=== PATIENT | male | born 1990 | race Caucasian/White ===

== ENCOUNTER → 2017-06-26 | Emergency (ER) | payer OTHER, MEDICAID ==
[~2017-06-26] VITALS: Ht 177.8 cm; Wt 68.0 kg
[~2017-06-26] MED LIST: Lidocaine 1% MPF 10mg/ml 5ml INJ ONE; NORCO 5-325 TA1 EACH ORAL; traMADol 50mg tab ORAL ONE
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
[2017-06-26 20:35] VITALS: BP_SYST 119; BP_SYST 123; BP_DIAS 74; BP_DIAS 76
--- NOTE | 2017-06-27 09:40 | Diagnostic Imaging Report ---
Indication: Reason For Exam: PAIN Technique: 3 views right hand Comparison: none Findings: There is a comminuted fracture of the right first proximal phalanx. This is mildly displaced and angulated, extends into the distal articular surface. There is slight subluxation of the first metacarpophalangeal joint. No radiopaque foreign body. No other acute fractures. The joint spaces are preserved Impression: Positive for evidence first proximal phalangeal fracture This agrees with the ER physician impression reported in the electronic medical record
== END | disposition home or self-care (01) ==
LOC: EMR 19:00
DX: S62.511A Displaced fracture of proximal phalanx of right thumb, initial encounter for closed fracture (principal); V18.0XXA Pedal cycle driver injured in noncollision transport accident in nontraffic accident, initial encounter; Y93.55 Activity, bike riding; Y92.9 Unspecified place or not applicable; Z88.0 Allergy status to penicillin
CPT/HCPCS: 99284

== ENCOUNTER 2017-08-09 05:53 | Inpatient (IN) | payer OTHER, MEDICAID ==
[~2017-08-09] VITALS: Ht 177.8 cm; Wt 63.5 kg
[~2017-08-09 05:53] MED LIST changes: -Lidocaine 1% MPF 10mg/ml 5ml INJ ONE; -traMADol 50mg tab ORAL ONE
[2017-08-09] MEDS ORDERED: SUBOXONE 8 MG-1 EAC2 SL (06:01)
--- NOTE | 2017-08-09 06:12 | Emergency Room Report ---
History of Present Illness General Chief Complaint: Nausea, Vomiting, and Diarrhea Source: Patient Present Illness HPI 27-year-old male with no sig pmhx p/w nausea vomiting and abdominal pain 2 days. Pain is all of her abdomen, non radiating, sharp in nature, intermittent. No relieving or exacerbating factors. Pt reports n/v, multiple episodes of nbnb vomiting, denies diarrhea, the last passage of stool was 24 hours ago, is passing gas No recent travel or sick contacts. Patient states that this is never happened before. Denies any surgeries in the past. Admits to smoking marijuana. Allergies: Coded Allergies: AMOXICILLIN (Verified Allergy, Intermediate, fever, 06/26/17) Patient History Past Medical History: see triage record Past Surgical History: none Pertinent Family History: none Reviewed Nursing Documentation: PMH: Agreed; PSxH: Agreed Review of Systems All Other Systems: negative except mentioned in HPI Physical Exam Vital Signs Date Time Temp Pulse Resp B/P (MAP) Pulse Ox O2 Delivery O2 Flow Rate FiO2 08/09/17 05:55 98.3 86 16 122/86 96 Room Air 98.2 Sp02 EP Interpretation: reviewed, normal General Appearance: alert, GCS 15, non-toxic, moderate distress Head: normocephalic, atraumatic Eyes: bilateral eye normal inspection, bilateral eye PERRL, bilateral eye EOMI ENT: normal ENT inspection, normal pharynx, normal voice, moist mucus membranes Neck: normal inspection, full range of motion, supple Respiratory: normal inspection, lungs clear, normal breath sounds, no respiratory distress, no retraction, no wheezing, speaking full sentences, chest symmetrical Cardiovascular #1: normal inspection, regular rate, rhythm, no edema, normal capillary refill Cardiovascular #2: 2+ radial (R), 2+ radial (L) Gastrointestinal: other - Soft abdomen, no guarding or rigidity, however with generalized tenderness Genitourinary: no CVA tenderness Musculoskeletal: normal inspection, back normal, normal range of motion, non- tender Neurologic: normal inspection, alert, oriented x3, responsive, motor strength/ tone normal, sensory intact, normal gait, speech normal Psychiatric: normal inspection, judgement/insight normal, memory normal Skin: normal inspection, normal color, no rash, warm/dry, well hydrated, normal turgor Medical Decision Making ER Course 27-year-old male with nausea vomiting abdominal pain Differential Diagnosis: Gastritis, gastroenteritis, appendicitis, diverticulitis, SBO,UTI/pyelo Plan: Basic labs, ua Zofran, IVF CT abdopelvis Signed out patient to 27-year-old male with abdominal pain nausea vomiting Pending labs and CT, reassess for final disposition Last Vital Signs Date Time Temp Pulse Resp B/P (MAP) Pulse Ox O2 Delivery O2 Flow Rate FiO2 08/09/17 05:55 98.3 86 16 122/86 96 Room Air 98.2 Jeanette Peña M.D. Aug 09, 2017 06:12
[2017-08-09] MEDS ORDERED: Morphine Sulfate 4mg/ml Inj IVP ONE ×2 (06:15→09:00)
[2017-08-09 06:29] VITALS: BP 119/85
[2017-08-09 06:41] LABS: BASOPHILS % (AUTO) 1.5 % (0.0-2.0); EOSINOPHILS % (AUTO) 0.5 % (0.0-3.0); HEMOGLOBIN 16.1 G/DL (14.2-18.0); LYMPHOCYTES % (AUTO) 27.3 % (20.0-45.0); MEAN CORPUSCULAR VOLUME 84 FL (80-99); MONOCYTES % (AUTO) 5.9 % (1.0-10.0); NEUTROPHILS % (AUTO) 64.8 % (45.0-75.0); PLATELET COUNT 379 K/UL (150-450); RED BLOOD COUNT 5.69 M/UL (4.70-6.10); RED CELL DISTRIBUTION WIDTH 11.6 % (11.6-14.8); WHITE BLOOD COUNT 12.1 K/UL (4.8-10.8)
[2017-08-09 06:46] LABS: ANION GAP 14 mmol/L (5-15); BLOOD UREA NITROGEN 19 mg/dL (7-18); CALCIUM 10.3 MG/DL (8.5-10.1); CARBON DIOXIDE 26 MMOL/L (21-32); CHLORIDE 98 MMOL/L (98-107); CREATININE 1.3 MG/DL (0.55-1.30); POTASSIUM 4.1 MMOL/L (3.5-5.1); SODIUM 138 MMOL/L (136-145)
[2017-08-09 06:51] LABS: ALANINE AMINOTRANSFERASE 62 U/L (12-78); ALBUMIN 5.6 G/DL (3.4-5.0); ALBUMIN/GLOBULIN RATIO 1.5 (1.0-2.7); ALKALINE PHOSPHATASE 117 U/L (46-116); ASPARTATE AMINO TRANSFERASE 34 U/L (15-37); BILIRUBIN,TOTAL 0.8 MG/DL (0.2-1.0)
[2017-08-09 08:18] VITALS: BP 132/81
--- NOTE | 2017-08-09 08:37 | Diagnostic Imaging Report ---
Clinical Indication: Nausea, vomiting, abdominal pain Technique: No oral contrast utilized, per emergency room physician request IV administration nonionic contrast. Venous phase spiral acquisition obtained through the abdomen and pelvis. Multiplanar reconstructions were generated. Total dose length product 623.4 mGycm. CTDIvol(s) 12.57 mGy. Dose reduction achieved using automated exposure control Comparison: none Findings: Lack of enteric contrast limits assessment of the GI tract. Appendix is normal. There is equivocal mild thickening of the ascending colon wall, most likely an artifact of under distention. No evidence of diverticulosis or diverticulitis. No small bowel distention. No free or loculated intraperitoneal air or fluid. Distal esophagus, stomach, duodenum are unremarkable. The liver demonstrates a subcentimeter low-attenuation lesion in segment IVb which is too small to characterize, may have a peripheral nodular enhancing focus. The gallbladder, bile ducts, pancreas, spleen, adrenals, kidneys are all unremarkable. No retroperitoneal or mesenteric mass or adenopathy. No pelvic mass or adenopathy. The included lung bases are clear. The bones are unremarkable. Impression: Very questionable wall thickening of the ascending colon, most likely artifact of under distention but if real could indicate mild colitis changes No acute process otherwise Subcentimeter low-attenuation left lobe liver lesion. Too small to characterize, although questionable peripheral nodular enhancement raises possibility that this could represent a small hemangioma. Consider ultrasound to clarify The CT scanner at [facility] is accredited by the [employer] and the scans are performed using protocols designed to limit radiation exposure to as low as reasonably achievable to attain images of sufficient resolution adequate for diagnostic evaluation.
[2017-08-09 08:40] LABS: APPEARANCE,URINE CLEAR; BILIRUBIN, URINE NEGATIVE (NEGATIVE); COLOR,URINE PALE YELLOW; GLUCOSE, URINE (UA) NEGATIVE (NEGATIVE); KETONES,URINE 4+ (NEGATIVE); LEUKOCYTE ESTERASE ,URINE 1+ (NEGATIVE); NITRITE,URINE NEGATIVE (NEGATIVE); PH,URINE 8 (4.5-8.0); PROTEIN,URINE 2+ (NEGATIVE); UROBILINOGEN,URINE 1 MG/DL (0.0-1.0)
[2017-08-09] MEDS ORDERED: Ketorolac 30mg Inj IV ONE (09:00)
--- NOTE | 2017-08-09 09:36 | Emergency Room Report ---
Physical Exam Vital Signs Date Time Temp Pulse Resp B/P (MAP) Pulse Ox O2 Delivery O2 Flow Rate FiO2 08/09/17 05:55 98.3 86 16 122/86 96 Room Air 98.2 Medical Decision Making Diagnostic Impression: Primary Impression: Colitis Additional Impression: Intractable vomiting with nausea Qualified Codes: G43.A1 - Cyclical vomiting, intractable ER Course Hospital Course 27-year-old male presents ED with abdominal pain, vomiting and diarrhea Clinical course Patient initially seen by Dr. Peña; please see her note for full history and physical Labs - leukocytosis noted, Hb/Hct stable. electrolytes ok. Utox + THC CT A/P - ascending colitis appreciated Discussed findings with patient. Patient continues to have pain and vomiting despite multiple rounds of antiemetics and analgesia. Patient recently took Bactrim for an infection. Given Cipro and Flagyl here in ED. Will require admission Case discussed with Dr. Ojeda and he agreed to accept the patient to his service for further care and support I feel this is a highly complex case requiring extensive working including EKG/ Rhythm strip, Xray/CT/US, Blood/urine lab work, repeat exams while in ED, and administration of strong opiates/narcotics for pain control, admission to hospital or close patient follow up. Diagnosis - colitis, intractable vomiting and nausea Patient admitted to hospital in serious condition Labs Test 08/09/17 06:12 08/09/17 08:30 White Blood Count 12.1 K/UL (4.8-10.8) Red Blood Count 5.69 M/UL (4.70-6.10) Hemoglobin 16.1 G/DL (14.2-18.0) Hematocrit 48.0 % (42.0-52.0) Mean Corpuscular Volume 84 FL (80-99) Mean Corpuscular Hemoglobin 28.3 PG (27.0-31.0) Mean Corpuscular Hemoglobin Concent 33.5 G/DL (32.0-36.0) Red Cell Distribution Width 11.6 % (11.6-14.8) Platelet Count 379 K/UL (150-450) Mean Platelet Volume 7.9 FL (6.5-10.1) Neutrophils (%) (Auto) 64.8 % (45.0-75.0) Lymphocytes (%) (Auto) 27.3 % (20.0-45.0) Monocytes (%) (Auto) 5.9 % (1.0-10.0) Eosinophils (%) (Auto) 0.5 % (0.0-3.0) Basophils (%) (Auto) 1.5 % (0.0-2.0) Sodium Level 138 MMOL/L (136-145) Potassium Level 4.1 MMOL/L (3.5-5.1) Chloride Level 98 MMOL/L (98-107) Carbon Dioxide Level 26 MMOL/L (21-32) Anion Gap 14 mmol/L (5-15) Blood Urea Nitrogen 19 mg/dL (7-18) Creatinine 1.3 MG/DL (0.55-1.30) Estimat Glomerular Filtration Rate > 60 mL/min (>60) Glucose Level 146 MG/DL (74-106) Calcium Level 10.3 MG/DL (8.5-10.1) Total Bilirubin 0.8 MG/DL (0.2-1.0) Aspartate Amino Transf (AST/SGOT) 34 U/L (15-37) Alanine Aminotransferase (ALT/SGPT) 62 U/L (12-78) Alkaline Phosphatase 117 U/L (46-116) Total Protein 9.3 G/DL (6.4-8.2) Albumin 5.6 G/DL (3.4-5.0) Globulin 3.7 g/dL Albumin/Globulin Ratio 1.5 (1.0-2.7) Lipase 271 U/L (73-393) Urine Color Pale yellow Urine Appearance Clear Urine pH 8 (4.5-8.0) Urine Specific [place] 1.005 (1.005-1.035) Urine Protein 2+ (NEGATIVE) Urine Glucose (UA) Negative (NEGATIVE) Urine Ketones 4+ (NEGATIVE) Urine Occult Blood Negative (NEGATIVE) Urine Nitrite Negative (NEGATIVE) Urine Bilirubin Negative (NEGATIVE) Urine Urobilinogen 1 MG/DL (0.0-1.0) Urine Leukocyte Esterase 1+ (NEGATIVE) Urine RBC 0 /HPF (0 - 0) Urine WBC 2-4 /HPF (0 - 0) Urine Squamous Epithelial Cells Occasional /LPF Urine Bacteria Occasional /HPF (NONE) Urine Opiates Screen Positive (NEGATIVE) Urine Barbiturates Screen Negative (NEGATIVE) Phencyclidine (PCP) Screen Negative (NEGATIVE) Urine Amphetamines Screen Negative (NEGATIVE) Urine Benzodiazepines Screen Negative (NEGATIVE) Urine Cocaine Screen Negative (NEGATIVE) Urine Marijuana (THC) Screen Positive (NEGATIVE) CT/MRI/US Diagnostic Results CT/MRI/US Diagnostic Results : Imaging Test Ordered: CT A/P Impression ascending colitis Last Vital Signs Date Time Temp Pulse Resp B/P (MAP) Pulse Ox O2 Delivery O2 Flow Rate FiO2 08/09/17 09:02 98.6 08/09/17 08:18 71 16 132/81 100 Room Air Status: improved Disposition: ADMITTED INPATIENT Condition: Serious Referrals: NOT CHOSEN IPA/,REFERRING (PCP) Nigel Hannon MD Aug 09, 2017 09:36
[2017-08-09] MEDS ORDERED: ATIVAN2 MG ORAL (10:28)
[2017-08-09] MEDS ORDERED: PRILOSEC OTC20 MG ORAL (10:28)
[2017-08-09 10:43] VITALS: BP 132/74
[2017-08-09 12:00] VITALS: BP 132/74
[2017-08-09] MEDS ORDERED: D5 1/2NS 1,000 ML IV SCH (12:45)
[2017-08-09] MEDS: Morphine Sulfate 4mg/ml Inj IVP PRN ×3 (12:56→21:12)
[2017-08-09] MEDS: metroNIDAZOLE 500mg tab ORAL SCH ×2 (14:38→21:11)
[2017-08-09 16:00] VITALS: BP 156/80
--- NOTE | 2017-08-09 17:00 | Consultation ---
DATE OF CONSULTATION: 08/09/2017 CHIEF COMPLAINT: Nausea, vomiting, abdominal pain. HISTORY OF PRESENT ILLNESS: The patient is a 27-year-old male admitted to the hospital with two days worth of nausea, vomiting, abdominal pain, and diarrhea. According to him, he had these symptoms before, questionably he was diagnosed with cyclic vomiting syndrome in the past he said but this was not recently. He had a fall. He had a surgery on his thumb and then he said two days ago he started having nausea, vomiting, and diarrhea. PAST MEDICAL HISTORY: Basically none. PAST SURGICAL HISTORY: Right thumb surgery. No abdominal surgeries. ALLERGIES: Amoxicillin. MEDICATIONS: Please see medication reconciliation list. SOCIAL HISTORY: The patient apparently used to smoke and drink recently about two weeks ago, stopped both. FAMILY HISTORY: Noncontributory. He said he was adopted. He does not know what the family history. REVIEW OF SYSTEMS: A 12-point review of systems performed. Pertinent positives in history of present illness. PHYSICAL EXAMINATION: VITAL SIGNS: Temperature 99.2, pulse 68, respiratory rate 20, blood pressure 150/74. HEENT: Normocephalic and atraumatic. Sclerae anicteric. NECK: Supple. No evidence of lymphadenopathy. CARDIOVASCULAR: Regular rhythm. Plus S1 and S2. No obvious murmur. LUNGS: Clear to auscultation bilaterally. ABDOMEN: Soft. Minimal tenderness to palpation in the epigastric area. No rebound. No guarding. No peritoneal sign. EXTREMITIES: No cyanosis. No clubbing. No edema. LABORATORY DATA: White count is 12.1, hemoglobin 16, hematocrit 48, platelet count 379. Chem-7, sodium is 138, potassium 4.1, BUN 19, creatinine 1.3, and glucose 146. Calcium is 10.3. Liver function, AST of 34, ALT of 62, total bilirubin 0.8, and alkaline phosphate 117. CT of the abdomen and pelvis, no acute intra-abdominal findings. ASSESSMENT AND PLAN: The patient is a 27-year-old male with nausea and vomiting. Differential diagnosis would be gastritis. According to the patient, he had an endoscopy few years ago gastritis. Other possibility will be gastroenteritis with diarrhea. Other possibility marijuana-induced hyperemesis syndrome. PLAN: 1. Send urine toxicology. 2. Control the patient's symptoms with combination of different antiemetics. 3. Hydrate with IV fluids. 4. Start the patient on Protonix. 5. Start the patient on clears and advance as tolerated. 6. Hold off GI procedures at this time. I want to thank, Dr. Gus Ojeda, for this kind referral. Christos Cordelia Bell DR: Marivel JOB#: [id number] CC: Gus Ojeda D.O.
--- NOTE | 2017-08-09 17:30 | History and Physical Report ---
DATE OF ADMISSION: 08/09/2017 ATTENDING PHYSICIAN: Gus Ojeda D.O. PROJECT MANAGEMENT PROFESSIONAL: Christos Bell M.D. CHIEF COMPLAINT: Colitis, nausea, and vomiting. BRIEF HISTORY: This is a 27-year-old male, presented with nausea and vomiting for two days, getting worse, came to [facility], diagnosed with colitis, admitted to medical floor for further treatment. Currently, slightly nausea and vomiting in bed, weak. No complaint. PAST MEDICAL HISTORY: Nothing. PAST SURGICAL HISTORY: Right thumb. MEDICATIONS: Zofran, Toradol, Cipro, Pepcid IV, and morphine. ALLERGY: Amoxicillin. SOCIAL HISTORY: No smoking. No alcohol. Positive marijuana use. REVIEW OF SYSTEMS: No chest pain. No shortness of breath. Slight nausea and vomiting. No diarrhea. OBJECTIVE: GENERAL: Calm in bed, oriented x3, no acute distress. VITAL SIGNS: Temperature 99 degrees, pulse 68, respirations 20, and blood pressure 132/74. CARDIOVASCULAR: No murmur. LUNGS: Clear. ABDOMEN: Positive bowel sounds. Soft, nontender and nondistended. EXTREMITIES: No cyanosis or edema. NEUROLOGIC: Cranial nerves II through XII grossly intact. Deep tendon reflexes 2+. Normal strength 4/5. LABORATORY AND DIAGNOSTIC DATA: White count 12, otherwise CBC is normal. BMP shows glucose of 146, BUN 19, alkaline phosphatase 117, and calcium 10.3, otherwise normal. Urinalysis shows 4+ ketone and 1+ leukocyte esterase. Urine toxicology shows positive marijuana and opiates. ASSESSMENT: 1. Urinary tract infection. 2. Colitis. 3. Diabetes. 4. Nausea and vomiting. PLAN: Continue previous medications. Antibiotics per Infectious Disease. GI to follow. NPO. IV fluids. Compazine p.r.n. and morphine p.r.n. We will continue to follow this patient. Gus Ojeda D.O. DR: JENNIFER JOB#: [id number] CC:
[2017-08-09] MEDS ORDERED: Cyclobenzaprine 10mg Tab ORAL PRN (18:30)
[2017-08-09 20:00] VITALS: BP 129/70
[2017-08-09] MEDS ORDERED: Pantoprazole Inj IVP SCH (21:00)
[2017-08-09] MEDS ORDERED: Tubing IV Secondary IV ONE (22:34)
[2017-08-09] MEDS ORDERED: D5 1/2NS 1000ml IV ONE (22:34)
[2017-08-10] MEDS ORDERED: ZOFRAN ODT4 MG ORAL (00:34)
[2017-08-10] MEDS ORDERED: Pantoprazole Inj IVP SCH (09:00)
--- NOTE | 2017-08-10 11:04 | Discharge Summary ---
Discharge Summary Discharge Summary Discharge Summary DATE OF ADMISSION: 08/09/2017 DATE OF SIGNING AGAINST MEDICAL ADVISE:08/09/2017 REASON FOR ADMISSION: 27 years old male presented to emergency department with abdominal pain and intractable nausea and vomiting. Initial evaluation revealed stable vital signs. Noted leukocytosis, WBC -12.1, stable hemoglobin and hematocrit, stable electrolytes. Urine toxicology screen was positive for marijuana. CT of the abdomen abdomen and pelvis revealed possible mild colitis changes. Patient was given IV fluids, antiemetic given, patient was started on empiric antibiotic and was admitted with diagnosis of intractable nausea and vomiting, possible colitis. CONSULT[facility] COURSE: Patient admitted to medical surgical floor. Patient was on the IV fluids. GI specialist seen and evaluated the patient. Patient was on symptomatic treatment with antiemetics as needed. Patient was started on the GI prophylaxis. Patient was started on clear liquid diet with intent to advance as tolerated. Pain management provided as needed. Per GI specialist, at this point hold GI procedure. Per GI specialist, differential diagnosis would include gastroenteritis, gastritis versus marijuana induced hyperemesis syndrome. Patient decided to sign AGAINST MEDICAL ADVICE. The risks and consequences of signing AGAINST MEDICAL ADVICE were discussed with patient in detail. Patient verbalized understanding, nevertheless signing AMA form and left. FINAL DIAGNOSES: Intractable nausea and vomiting Possible gastritis Possible gastroenteritis Possible marijuana induced hyperemesis syndrome I have been assigned to dictate discharge summary for this account. I was not involved in the patient's management. Monique Shultz NP ([place]) Aug 10, 2017 11:04
== END 2017-08-09 22:35 | disposition left against medical advice (07) | DRG 392 ==
LOC: EMR 06:33 → 4E 09:24 → EDBEDREQ 09:46
DX: R11.2 Nausea with vomiting, unspecified (principal); K29.70 Gastritis, unspecified, without bleeding; K52.9 Noninfective gastroenteritis and colitis, unspecified; F12.188 Cannabis abuse with other cannabis-induced disorder; Z88.1 Allergy status to other antibiotic agents; R10.9 Unspecified abdominal pain
CPT/HCPCS: 36415; 74177; 80053; 80307; 81003; 83690; 85025; 87040; 99285; J2405

== ENCOUNTER 2017-08-09 22:48 | Emergency (ER) | payer OTHER, MEDICAID ==
[~2017-08-09] VITALS: Ht 177.8 cm; Wt 63.5 kg
[~2017-08-09 22:48] MED LIST changes: +ATIVAN2 MG ORAL; +PRILOSEC OTC20 MG ORAL; +SUBOXONE 8 MG-1 EAC2 SL
[2017-08-09] MEDS ORDERED: Haloperidol Lactate 5 MG in D5W 55 ML IVPB ONE (23:15)
--- NOTE | 2017-08-09 23:23 | Emergency Room Report ---
History of Present Illness General Chief Complaint: Nausea, Vomiting, and Diarrhea Source: Patient Present Illness HPI This is a 27-year-old male with a history of cyclic vomiting syndrome. He also history of anxiety and chronic pain. Patient presents with chief complaint of abdominal pain and nausea and vomiting. His current regimen is tramadol, lorazepam and buprenorphine. She was recently admitted here and sat out AMA today because he did not get his Ativan through the IV. He came back because he said he still vomiting. Also with cramping in his leg. Known diarrhea. No fever or chills. Cramping pain of 8 out of 10. Allergies: Coded Allergies: AMOXICILLIN (Verified Allergy, Intermediate, fever, 06/26/17) Patient History Past Medical History: see triage record, old chart reviewed Past Surgical History: other Pertinent Family History: none Social History: Denies: smoking Immunizations: other Reviewed Nursing Documentation: PMH: Agreed; PSxH: Agreed Nursing Documentation-PMH Past Medical History: No Stated History Hx Cardiac Problems: No Hx Cancer: No Hx Gastrointestinal Problems: Yes Hx Neurological Problems: No Review of Systems Eye: Denies: eye pain, blurred vision ENT: Denies: ear pain, nose congestion, throat swelling Respiratory: Denies: cough, shortness of breath Cardiovascular: Denies: chest pain, palpitations Gastrointestinal: Reports: abdominal pain, nausea, vomiting; Denies: diarrhea Musculoskeletal: Denies: back pain, joint pain Skin: Denies: rash Neurological: Denies: headache, numbness Endocrine: Denies: increased thirst, increased urine Hematologic/Lymphatic: Denies: easy bruising All Other Systems: negative except mentioned in HPI Physical Exam Vital Signs Date Time Temp Pulse Resp B/P (MAP) Pulse Ox O2 Delivery O2 Flow Rate FiO2 08/09/17 22:54 98.6 86 22 118/78 98 Room Air 98.6 vitals normal Sp02 EP Interpretation: reviewed, normal General Appearance: well appearing, no apparent distress, alert Head: normocephalic, atraumatic Eyes: bilateral eye PERRL, bilateral eye EOMI ENT: hearing grossly normal, normal pharynx Neck: full range of motion, supple, no meningismus Respiratory: chest non-tender, lungs clear, normal breath sounds Cardiovascular #1: regular rate, rhythm, no murmur Gastrointestinal: non tender, no mass, no organomegaly, no bruit, non-distended , abnormal bowel sounds - Hyperactive Musculoskeletal: back normal, gait/station normal, normal range of motion Psychiatric: mood/affect normal Skin: warm/dry Medical Decision Making Diagnostic Impression: Primary Impression: Opioid dependence Qualified Codes: F11.20 - Opioid dependence, uncomplicated Additional Impression: Vomiting Qualified Codes: G43.A0 - Cyclical vomiting, not intractable ER Course Patient presents with nausea and vomiting and abdominal pain. His labs are unremarkable. Urine only 1+ ketone which is improved from before. You know he claims met multiple episodes vomiting no vomiting here. He sleeping comfortably. Constantly asking for narcotics and Ativan. We'll discharge home. He had multiple prescription for Ativan and opioid. He had a recent 90 tablets of Ativan and on and 20 tablets of Ultram on 07/29/2017. We'll discharge home. No evidence of an acute abdomen. No evidence of electrolyte abnormality. Lab Results Impression labs unremarkable Last Vital Signs Date Time Temp Pulse Resp B/P (MAP) Pulse Ox O2 Delivery O2 Flow Rate FiO2 08/09/17 22:54 98.6 86 22 118/78 98 Room Air 98.6 Status: improved Disposition: HOME, SELF-CARE Condition: Stable Scripts Ondansetron Odt* (ZOFRAN ODT*) 4 Mg Tab.rapdis 4 MG ORAL Q6H PRN for Nausea & Vomiting, #30 TAB 0 Refills Prov: WENDY ORNELAS M.D. 08/10/17 Patient Instructions: DIET, Vomiting or Diarrhea [6yr-Adult] Additional Instructions: Avoid going to ERs for pain medication and Ativan. Follow-up with your doctor in 23 days for recheck. Return if worse. WENDY ORNELAS M.D. Aug 09, 2017 23:23
[2017-08-09 23:35] LABS: HEMATOCRIT 39.3 % (42.0-52.0); HEMOGLOBIN 13.7 G/DL (14.2-18.0); LYMPHOCYTES % (AUTO) 25.4 % (20.0-45.0); MEAN CORPUSCULAR VOLUME 83 FL (80-99); MONOCYTES % (AUTO) 9.1 % (1.0-10.0); NEUTROPHILS % (AUTO) 64.5 % (45.0-75.0); PLATELET COUNT 314 K/UL (150-450); RED BLOOD COUNT 4.76 M/UL (4.70-6.10); RED CELL DISTRIBUTION WIDTH 11.6 % (11.6-14.8)
[2017-08-09 23:43] LABS: ANION GAP 11 mmol/L (5-15); BLOOD UREA NITROGEN 14 mg/dL (7-18); CALCIUM 8.8 MG/DL (8.5-10.1); CARBON DIOXIDE 25 MMOL/L (21-32); CHLORIDE 101 MMOL/L (98-107); CREATININE 1.1 MG/DL (0.55-1.30); POTASSIUM 3.7 MMOL/L (3.5-5.1); SODIUM 137 MMOL/L (136-145)
[2017-08-09 23:54] LABS: APPEARANCE,URINE CLEAR; BILIRUBIN, URINE NEGATIVE (NEGATIVE); COLOR,URINE PALE YELLOW; GLUCOSE, URINE (UA) NEGATIVE (NEGATIVE); KETONES,URINE 1+ (NEGATIVE); LEUKOCYTE ESTERASE ,URINE NEGATIVE (NEGATIVE); NITRITE,URINE NEGATIVE (NEGATIVE); PH,URINE 6 (4.5-8.0); PROTEIN,URINE NEGATIVE (NEGATIVE); UROBILINOGEN,URINE NORMAL MG/DL (0.0-1.0)
[2017-08-10 00:05] VITALS: BP 146/80
[2017-08-10] MEDS ORDERED: ZOFRAN ODT4 MG ORAL (00:34)
[2017-08-10 00:39] VITALS: BP 146/80
== END 2017-08-10 00:40 | disposition home or self-care (01) ==
LOC: EMR 23:50
DX: F11.20 Opioid dependence, uncomplicated (principal); G43.A0 Cyclical vomiting, in migraine, not intractable; G89.29 Other chronic pain; R10.9 Unspecified abdominal pain; F41.9 Anxiety disorder, unspecified
CPT/HCPCS: 36415; 80048; 81003; 85025; 96361; 96374; 99284; J1630; J2550

== ENCOUNTER 2018-02-25 14:59 | Emergency (ER) | payer MEDICAID, OTHER ==
[~2018-02-25] VITALS: Ht 177.8 cm; Wt 65.8 kg
[~2018-02-25 14:59] MED LIST changes: +ZOFRAN ODT4 MG ORAL
[2018-02-25] MEDS ORDERED: NKM (15:23)
[2018-02-25 15:30] VITALS: BP 122/72
--- NOTE | 2018-02-25 15:56 | Emergency Room Report ---
History of Present Illness General Chief Complaint: Skin Rash/Abscess Source: Patient (Zaheer Lockhart) Present Illness HPI 27-year-old male patient presents ER, complaining of right foot pain and cyst on left arm. Patient reports this is been present for the past 5 days, states it has been worse in the past 2 days. States that he went to an urgent care where he was prescribed antibiotics, states that he lost the prescription. Reports pain. Denies drainage. Denies recent injury or trauma. Also complaining of foot pain. States that he had surgery for a fracture bone in his foot one month ago, states that he was unable to follow-up with that doctor because they are in [place] and he does not have a way of "getting down there". Reports has not been able to see other orthopedic specialists or doctors because of his [employer] insurance. Denies recent injury or trauma. Complaining of pain. reports wrapped in an Andrei wrap and using crutches to walk , states was placed on by previous physicians that saw him. ports history of drug use, states has not use drugs in "a week or so". (Zaheer Lockhart) Allergies: Coded Allergies: AMOXICILLIN (Verified Allergy, Intermediate, fever, 06/26/17) Patient History Past Medical History: see triage record Reviewed Nursing Documentation: PMH: Agreed; PSxH: Agreed (Zaheer Lockhart) Nursing Documentation-PMH Past Medical History: No History, Except For Hx Cardiac Problems: No Hx Hypertension: No Hx Pacemaker: No Hx Asthma: No Hx COPD: No Hx Diabetes: No Hx Cancer: No Hx Gastrointestinal Problems: No Hx Dialysis: No History Of Psychiatric Problem: Yes - Anxiety Hx Neurological Problems: No Hx Cerebrovascular Accident: No Hx Seizures: No (Zaheer Lockhart) Review of Systems All Other Systems: negative except mentioned in HPI (Zaheer Lockhart) Physical Exam Vital Signs Date Time Temp Pulse Resp B/P (MAP) Pulse Ox O2 Delivery O2 Flow Rate FiO2 02/25/18 15:19 98.6 110 18 122/72 99 Room Air 98.6 Sp02 EP Interpretation: reviewed, normal General Appearance: well appearing, no apparent distress, alert, GCS 15, non- toxic Head: normocephalic, atraumatic Eyes: bilateral eye normal inspection, bilateral eye PERRL ENT: hearing grossly normal, normal pharynx, no angioedema, normal voice, uvula midline, moist mucus membranes Neck: full range of motion Respiratory: lungs clear, normal breath sounds, no rhonchi, no respiratory distress, no accessory muscle use, no wheezing, speaking full sentences Cardiovascular #1: regular rate, rhythm, no edema Cardiovascular #2: 2+ radial (R), 2+ radial (L), 2+ dorsalis pedis (R), 2+ dorsalis pedis (L) Musculoskeletal: back normal, digits/nails normal, gait/station normal, normal range of motion, other - neurovascular intact, no erythema or edema, no ecchymosis, tender - right medial foot Neurologic: alert, oriented x3, responsive, motor strength/tone normal, sensory intact, cerebellar normal, normal gait, speech normal Psychiatric: mood/affect normal Skin: other - left medial elbow: 2cm palpable abscess with overlying eythema, fluctuant, no surrounding erythema or edema, no drainge, no red streaking; right foot: Healing surgical scar, scabbing noted, no surrounding erythema or edema, no bruising, no drainage (Zaheer Lockhart P.AMiguel) Procedures Incision and Drainage Incision and Drainage : Consent: Verbal Site: left median arm proximal to elbow Blade Size: 11 I & D Procedure: betadine prep, sterile drapes applied, sterile dressing applied Wound Location: upper extremity - left arm Wound's Depth, Shape: superficial Wound Length (cm): 2 Wound Explored: contaminated Irrigated w/ Saline (ccs): 10 Anesthesia: Lidocaine w/ Epi Volume Anesthetic (ccs): 1 Splint Applied?: No Sling Applied?: No Patient Tolerated: Well Complications: None (Zaheer Lockhart P.AMiguel) Medical Decision Making PA Attestation Dr. Meza is my supervising Physician whom patient management has been discussed with. (Zaheer Lockhart P.AMiguel) Diagnostic Impression: Primary Impression: Abscess Additional Impression: Foot pain, right ER Course Pt. presents to the ED c/o cyst on arm and right foot pain. Ddx considered but are not limited to rash, cellulitis, abscess, sebaceous cyst , carbuncle, folliculitis, chronic pain, sprain, strain, drug-seeking. Does not require imaging at this time. Vital signs: are WNL, pt. is afebrile ED INTERVENTIONS: Ibuprofen for pain. no recent injury or trauma, does not require repeat x-ray or imaging. Patient follow-up with primary care provider and orthopedic specialists discuss further treatment and referral. Discuss referral to pain management and referral to physical therapy. Discuss need for further imaging at that time. Provided with contact info for free and low cost health care clinics. and surgical laceration shows no signs of infection, will provide patient with RX for bacitracin and redressed wound and foot with Andrei wrap and sterile dressing. Keep wound clean and dry. Patient has crutches, declines need for crutches. Checked afterwards by me showing good alignment and neurovascularly intact. Patient reports hx of abscess drainage; a different site, states that he has "anxiety" when he sees needles and does not like needles. Will provide patient with Ativan to help with anxiety symptoms. PE shows 2cm abscess, will perform I&D procedure. Field block and local block of abscess performed with lidocaine with epi. I&D of abscess performed. Small <1cm incision made. Pus expressed. See procedure note. Sterile dressing applied to wound following procedure. follow-up with primary care or return to ER in 2-3 days for wound check. ER precautions given. Will discharge patient home with antibiotics. Take Tylenol for pain symptoms. Advised patients against drug use and to seek care DISCHARGE: -Rx provided for Bacitracin -Rx provided for Bactrim -Rx provided for Tylenol At this time pt. is stable for d/c to home. Patient is resting comfortably, in no acute distress, nontoxic appearing. Will provide printed patient care instructions and any necessary prescriptions. Care plan and follow up instructions have been discussed with the patient prior to discharge. Patient instructed to follow-up with primary care provider in 2 - 3 days for wound recheck. Patient questions asked and answered. Patient reports understanding and agreement to treatment plan. ER precautions given. Patient instructed to return to ER immediately for any new or worsening of symptoms including but not limited to fever, worsening of pain symptoms, worsening of erythema, red streaking. - Please note that this Emergency Department Report was dictated using [employer] boiler fireman technology software, occasionally this can lead to erroneous entry secondary to interpretation by the dictation equipment. (Zaheer Lockhart) ER Course I examined this patient and agree with the treatment plan. (Juan Francisco Meza MD) Last Vital Signs Date Time Temp Pulse Resp B/P (MAP) Pulse Ox O2 Delivery O2 Flow Rate FiO2 02/25/18 15:19 98.6 110 18 122/72 99 Room Air 98.6 Status: improved (Zaheer Lockhart) Disposition: HOME, SELF-CARE Condition: Stable Scripts Trimethoprim/Sulfamethoxazole 160/800* (BACTRIM DS TABLET*) 1 Each Tablet 1 TAB ORAL TWICE A DAY for 7 Days, #14 TAB Prov: Zaheer Lockhart 02/25/18 Acetaminophen* (TYLENOL EXTRA STRENGTH*) 500 Mg Tablet 500 MG ORAL Q8H PRN for Prn Headache/Temp > 101, #30 TAB 0 Refills Prov: Zaheer Lockhart 02/25/18 Bacitracin/Polymyxin B Sulfate (BACITRACIN-POLYMYXIN OINTMENT) 28.35 Gm Oint...g. 1 APPLIC TP BID, #28 GM Prov: Zaheer Lockhart 02/25/18 Patient Instructions: Abscess, Foot Sprain, Wound Care Additional Instructions: Followup with PCP in 2-3 days for wound check. Take medications as instructed. Patient questions asked and answered. Apply warm compresses to affected area. Keep wound clean and dry. ER precautions given. Return to ER for new or worsening of symptoms including but not limited to chest pain, SOB, red streaking, worsening of abscess, intractable vomiting. Zaheer Lockhart Feb 25, 2018 15:56 Juan Francisco Meza MD Feb 27, 2018 07:06
[2018-02-25] MEDS ORDERED: Bacitracin Oint UD TOPIC ONE (16:00)
[2018-02-25] MEDS: Ketorolac 30mg Inj IM ONE ×2 (16:01→16:11)
[2018-02-25] MEDS ORDERED: Lidocaine 1% 10mg/ml/Epi 0.005mg/ml 30ml vial INJ ONE (16:15)
[2018-02-25] MEDS ORDERED: LORazepam 0.5mg tab ORAL ONE (17:15)
[2018-02-25] MEDS ORDERED: BACTRIM DS TAB1 EAC1 ORAL (17:59)
[2018-02-25] MEDS ORDERED: BACITRACIN-P28.35 GM TP (17:59)
[2018-02-25] MEDS ORDERED: TYLENOL EXTRA500 MG ORAL (17:59)
[2018-02-25 18:14] VITALS: BP 118/74
== END 2018-02-25 18:30 | disposition home or self-care (01) ==
LOC: EMR 18:22
DX: L02.414 Cutaneous abscess of left upper limb (principal); M79.671 Pain in right foot; F41.9 Anxiety disorder, unspecified; Z88.0 Allergy status to penicillin
CPT/HCPCS: 10060; 96372; 99283

== ENCOUNTER 2018-05-23 22:31 | Emergency (ER) | payer MEDICAID ==
[~2018-05-23 22:31] MED LIST changes: +BACITRACIN-P28.35 GM TP; +BACTRIM DS TAB1 EAC1 ORAL; +NKM; +TYLENOL EXTRA500 MG ORAL
--- NOTE | 2018-05-23 22:32 | NUR ---
ED Nurse Note: pt was not around the aiting room when called
--- NOTE | 2018-05-23 22:35 | NUR ---
ED Nurse Note: pt was not in the wait room when called
--- NOTE | 2018-05-23 22:40 | NUR ---
ED Nurse Note: pt was not in the waiting room when called
--- NOTE | 2018-05-24 01:31 | Emergency Room Report ---
History of Present Illness General Chief Complaint: To Be Triaged Present Illness Allergies: Coded Allergies: AMOXICILLIN (Verified Allergy, Intermediate, fever, 06/26/17) Nursing Documentation-PMH Hx Cardiac Problems: No Hx Hypertension: No Hx Pacemaker: No Hx Asthma: No Hx COPD: No Hx Diabetes: No Hx Cancer: No Hx Gastrointestinal Problems: No Hx Dialysis: No Hx Neurological Problems: No Hx Cerebrovascular Accident: No Hx Seizures: No Medical Decision Making Diagnostic Impression: Primary Impression: Patient left without being seen ER Course Patient left without being seen Status: unchanged Disposition: LEFT W/OUT BEING SEEN Condition: Stable Referrals: NOT CHOSEN IPA/,REFERRING (PCP) Nigel Hannon MD May 24, 2018 01:31
[2018-05-24] MEDS ORDERED: VISTARIL50 MG ORAL (14:54)
[2018-05-24] MEDS ORDERED: GABAPENTIN100 MG ORAL (14:54)
[2018-05-24] MEDS ORDERED: ONDANSETRON ODT4 MG BC (14:54)
[2018-05-24] MEDS ORDERED: DICYCLOMINE HCL10 MG PO (14:54)
[2018-05-24] MEDS ORDERED: EVZIO0.4 MG/0.4 IJ (14:54)
[2018-05-24] MEDS ORDERED: ROBAXIN-750750 MG PO (14:54)
== END 2018-05-23 22:40 | disposition left against medical advice (07) ==
LOC: EMR 22:40
DX: Z53.21 Procedure and treatment not carried out due to patient leaving prior to being seen by health care provider (principal)

== ENCOUNTER 2018-05-24 12:35 | Emergency (ER) | payer MEDICAID, OTHER ==
[~2018-05-24] VITALS: Ht 177.8 cm; Wt 59.0 kg
--- NOTE | 2018-05-24 13:00 | NUR ---
ED Nurse Note: PT WAS DC FROM METHADONE 3X DAYS. PT IS EXPERIENCING WITHDRAWAL SYMPTOMS, PT WAS TACHYCARDIAC, AND C/O GENERAL BODY ACHES. PER PT PAIN 12/13
[2018-05-24 13:09] VITALS: BP 117/70
--- NOTE | 2018-05-24 13:23 | Emergency Room Report ---
History of Present Illness General Chief Complaint: General Complaint Source: Patient Present Illness HPI 27-year-old male presents to the emergency department complaining of continued opiate withdrawal symptoms after being discharged from detox facility 3 days ago. Patient reports that he was discharged from [facility] and has his discharge paperwork with him. Pt. feels he was d/c from detox course too early and would have benefitted from a few additional days/extended taper. Patient states that he was chronically taking Percocet and was then switched to methadone since May of last year following right foot surgery. Patient denies IV drug use he denies other drug use he denies drinking alcohol. Patient describes having generalized muscle cramps, nausea, stiffness, restless legs and hot and cold flashes. Patient dates that he was unable to go directly into a sober living as he tested positive for methadone for which he was given as part of his detox treatment. Patient denies cravings to use at this time. He reports a to 9 out of 10 in severity body aches. He also reports abdominal cramping and 2 loose bowel movements. Denies measured fevers. Denies PMHx. Denies SI/HI or PSA's. Denies hx of Seizures, Heart or liver disease. Allergies: Coded Allergies: AMOXICILLIN (Verified Allergy, Intermediate, fever, 06/26/17) [place] (Verified Allergy, Unknown, 05/24/18) Patient History Past Medical History: see triage record Past Surgical History: none Pertinent Family History: none Reviewed Nursing Documentation: PMH: Agreed; PSxH: Agreed Nursing Documentation-PMH Past Medical History: No History, Except For Hx Cardiac Problems: No Hx Hypertension: No Hx Pacemaker: No Hx Asthma: No Hx COPD: No Hx Diabetes: No Hx Cancer: No Hx Gastrointestinal Problems: No Hx Dialysis: No Hx Neurological Problems: No Hx Cerebrovascular Accident: No Hx Seizures: No Review of Systems All Other Systems: negative except mentioned in HPI Physical Exam Vital Signs Date Time Temp Pulse Resp B/P (MAP) Pulse Ox O2 Delivery O2 Flow Rate FiO2 05/24/18 12:45 98.8 110 18 117/70 97 Room Air Sp02 EP Interpretation: reviewed, normal General Appearance: well appearing, no apparent distress, alert, GCS 15, non- toxic Head: normocephalic, atraumatic Eyes: bilateral eye normal inspection, bilateral eye PERRL ENT: hearing grossly normal, normal pharynx, normal voice Neck: full range of motion, no meningismus Respiratory: lungs clear, normal breath sounds, no respiratory distress, no accessory muscle use, no wheezing, speaking full sentences Cardiovascular #1: regular rate, rhythm, no edema, tachycardia Gastrointestinal: normal bowel sounds, non tender, soft, non-distended, no guarding Rectal: deferred Genitourinary: normal inspection, no CVA tenderness Musculoskeletal: back normal, gait/station normal, normal range of motion, non- tender Neurologic: alert, oriented x3, responsive, motor strength/tone normal, sensory intact, normal gait, speech normal, grossly normal Psychiatric: judgement/insight normal, mood/affect normal, no suicidal/ homicidal ideation Skin: normal color, no rash, warm/dry, well hydrated, other - no track snowden noted. Medical Decision Making PA Attestation Dr. Shah is my supervising Physician whom patient management has been discussed with. Diagnostic Impression: Primary Impression: Opiate withdrawal ER Course 27-year-old male presents to the emergency department complaining of continued opiate withdrawal symptoms after being discharged from detox facility 3 days ago. Patient reports that he was discharged from [facility] and has his discharge paperwork with him. Pt. feels he was d/c from detox course too early and would have benefitted from a few additional days/extended taper. Patient states that he was chronically taking Percocet and was then switched to methadone since May of last year following right foot surgery. Patient denies IV drug use he denies other drug use he denies drinking alcohol. Patient describes having generalized muscle cramps, nausea, stiffness, restless legs and hot and cold flashes. Patient dates that he was unable to go directly into a sober living as he tested positive for methadone for which he was given as part of his detox treatment. Patient denies cravings to use at this time. He reports a to 9 out of 10 in severity body aches. He also reports abdominal cramping and 2 loose bowel movements. Denies measured fevers. Denies PMHx. Denies SI/HI or PSA's. Denies hx of Seizures, Heart or liver disease. Ddx considered but are not limited to acute vs. prolonged opiate w/d. dehydration, drug-seeking, non-compliance with treatment plans, Vital signs: are WNL, pt. is afebrile * COWS score of 5: HR, Subjective hot flashes, Subjectively restless-but observed calm, generalized muscle cramps, normal pupils. * CURES Review: consistent with history/information provided by pt. recent fill for small quantity methadone most likely for detox. H&PE are most consistent with mild opiate w/d symptoms, mostly subjective. Pt. is calm and non-toxic in appearance and NAD. ORDERS: none required at this time, the diagnosis is clinical ED INTERVENTIONS: - - -Symptomatic Tx: - ATARAX -Bentyl -Zofran -Robaxin -Tylenol --Pt. given numerous substance abuse resources and phone numbers. pt. has been staying at his friends house the past 3 days and plans to return after d/c, provided with rx's for small quantities of medications for symptomatic tx. To follow up with provided resources. Given strict ED return precautions. Also advised to return to ED if he begins developing opiate cravings and is considering obtaining opiates from street. Pt. verbalizes his understanding and agreement with this tx plan. PT. Provided with rx for Naloxone Auto-injector and educated on its Use and indications. All questions regarding this medication have been answered. pt. verbalizes understanding and agreement with need for having this medication prescribed. DISCHARGE: At this time pt. is stable for d/c to home. Will provide printed patient care instructions, and any necessary prescriptions. Care plan and follow up instructions have been discussed with the patient prior to discharge. Last Vital Signs Date Time Temp Pulse Resp B/P (MAP) Pulse Ox O2 Delivery O2 Flow Rate FiO2 05/24/18 13:09 110 18 Room Air 05/24/18 13:09 98.8 117/70 97 Disposition: HOME, SELF-CARE Condition: Stable Scripts Methocarbamol* (ROBAXIN-750*) 750 Mg Tablet 750 MG PO TID, #9 TAB 0 Refills Prov: Nadira Gaines 05/24/18 Dicyclomine Hcl* (DICYCLOMINE HCL*) 10 Mg Capsule 10 MG PO QID, #12 CAP Prov: Nadira Gaines 05/24/18 Ondansetron Odt* (ZOFRAN ODT*) 4 Mg Tab.rapdis 4 MG BC EVERY 8 HOURS, #10 TAB 0 Refills Prov: Nadira Gaines 05/24/18 Hydroxyzine Pamoate* (VISTARIL*) 50 Mg Capsule 50 MG ORAL EVERY 6 HOURS, #20 TAB 0 Refills Prov: Nadira Gaines 05/24/18 Gabapentin* (GABAPENTIN*) 100 Mg Capsule 100 MG ORAL THREE TIMES A DAY, #6 CAP Prov: Nadira Gaines 05/24/18 Naloxone HCl (Evzio) 0.4 Mg/0.4 Ml Auto.injct 0.4 MG IJ PRN PRN for Per rx protocol, #2 APPLIC Prov: Nadira Gaines 05/24/18 Referrals: NOT CHOSEN IPA/MD,REFERRING (PCP) Patient Instructions: Naloxone injection, Opioid Withdrawal Additional Instructions: Take medications as directed. Follow up with a Primary Care Provider in 3-5 days, even if your symptoms have resolved. --Please review list of primary care clinics, if you do not already have a primary care provider --REVIEW LIST OF SUBSTANCE DEPENDENCE RESOURCES Return sooner to ED if new symptoms occur, or current symptoms become worse. Do not drink alcohol, drive, or operate heavy machinery while taking Robaxin as this may cause drowsiness. - Please note that this Emergency Department Report was dictated using [employer] crust mixer technology software, occasionally this can lead to erroneous entry secondary to interpretation by the dictation equipment. Nadira Gaines May 24, 2018 13:23
[2018-05-24] MEDS ORDERED: Dicyclomine HCl 10mg/5ml oral soln ORAL ONE (13:30)
[2018-05-24] MEDS ORDERED: Methocarbamol 750mg tab ORAL ONE (13:30)
[2018-05-24] MEDS ORDERED: HydrOXYzine 50mg tab ORAL ONE (14:45)
[2018-05-24] MEDS ORDERED: GABAPENTIN100 MG ORAL (14:54)
[2018-05-24] MEDS ORDERED: VISTARIL50 MG ORAL (14:54)
[2018-05-24] MEDS ORDERED: ROBAXIN-750750 MG PO (14:54)
[2018-05-24] MEDS ORDERED: EVZIO0.4 MG/0.4 IJ (14:54)
[2018-05-24] MEDS ORDERED: ONDANSETRON ODT4 MG BC (14:54)
[2018-05-24] MEDS ORDERED: DICYCLOMINE HCL10 MG PO (14:54)
--- NOTE | 2018-05-24 15:10 | NUR ---
ED Nurse Note: pt was cleared for discharge by william. prescription and discharge instruction explained. pt is aox 4, pt able to verbalize understanding. id band removed. pt able to walk with steady gait. pt left with all belongings.
[2018-05-24 15:11] VITALS: BP 117/70
== END 2018-05-24 15:10 | disposition home or self-care (01) ==
LOC: EMR 13:09
DX: F11.23 Opioid dependence with withdrawal (principal); Z88.0 Allergy status to penicillin
CPT/HCPCS: 99283

== ENCOUNTER 2019-01-25 07:50 | Emergency (ER) | payer OTHER ==
[~2019-01-25] VITALS: Ht 177.8 cm; Wt 68.0 kg
[~2019-01-25 07:50] MED LIST changes: +DICYCLOMINE HCL10 MG PO; +EVZIO0.4 MG/0.4 IJ; +GABAPENTIN100 MG ORAL; +ONDANSETRON ODT4 MG BC; +ROBAXIN-750750 MG PO; +VISTARIL50 MG ORAL
[2019-01-25 07:58] VITALS: BP 129/83
--- NOTE | 2019-01-25 08:00 | NUR ---
ED Nurse Note: Patient walked in to ER with a friend due to abdominal pain 10/10 and N/V since last night. pt aao x4 and ambulatory but weak at this moment. cooperative but restless due to severe abdominal pain. VSS as documented. pt is in gown and on strike operations officer. no other acute distress noted beside pain at this moment. pt has multiple old scars in general body.
--- NOTE | 2019-01-25 08:59 | Emergency Room Report ---
History of Present Illness General Chief Complaint: Abdominal Pain Source: Patient Present Illness HPI Disclaimer: Please note that this report is being documented using [employer] technology. This can lead to erroneous entry secondary to incorrect interpretation by the dictating instrument. HPI: 28-year-old male with history of opiate abuse and gastritis presents for evaluation of abdominal pain and vomiting. Symptoms have been present approximately 1.5 days. Cannot recall a specific inciting factor to the symptoms. No recent exotic foods or travel or sick contacts. Denies fevers. Notes persistent vomiting and inability to hold down solids or liquids. Reports diffuse abdominal cramping. Denies diarrhea. Denies fevers, dysuria, hematuria, flank pain, chest pain, shortness of breath, cough or URI symptoms. Denies recent opiate use. States this is not like a withdrawal but more like his gastritis. He is not compliant with his omeprazole. PMH: Opiate abuse, gastritis PSH: Denies Allergies: Amoxicillin Social Hx: Former opiate dependence, denies alcohol, denies tobacco Allergies: Coded Allergies: AMOXICILLIN (Verified Allergy, Intermediate, fever, 06/26/17) [place] (Verified Allergy, Unknown, 05/24/18) Nursing Documentation-PMH Past Medical History: No History, Except For Hx Cardiac Problems: No Hx Hypertension: No Hx Pacemaker: No Hx Asthma: No Hx COPD: No Hx Diabetes: No Hx Cancer: No Hx Gastrointestinal Problems: Yes - Gastritis, hital hernia Hx Dialysis: No History Of Psychiatric Problem: Yes - anxiety Hx Neurological Problems: No Hx Cerebrovascular Accident: No Hx Seizures: No Review of Systems All Other Systems: negative except mentioned in HPI Physical Exam Vital Signs Date Time Temp Pulse Resp B/P (MAP) Pulse Ox O2 Delivery O2 Flow Rate FiO2 01/25/19 07:58 98.2 85 18 129/83 99 Room Air General: Awake and alert, appears uncomfortable HEENT: NC/AT. EOMI. Cardiovascular: RRR. S1 and S2 normal. No murmur appreciated Resp: Normal work of breathing. No cough, wheezing or crackles appreciated Abdomen: Abdomen is soft, nondistended. Diffusely tender in all quadrants. No rebound, negative Garcia's Skin: Intact. No abrasions, laceration or rash over the exposed skin. Excoriations over the skin likely from picking MSK: Normal tone and bulk. Moving all extremities. No obvious deformity. Neuro: Awake and alert. Mentating appropriately. Medical Decision Making Diagnostic Impression: Primary Impression: Abdominal pain with vomiting ER Course 28-year-old male presents for evaluation of abdominal pain and vomiting of 1.5 days. Differential includes was not limited to gastritis, cholecystitis, pancreatitis, opiate withdrawal, nephrolithiasis. Likely, this is gastritis and will treat symptomatically. Check labs and start IV fluids. Laboratory Tests Test 01/25/19 08:00 White Blood Count 12.5 K/UL (4.8-10.8) H Red Blood Count 5.22 M/UL (4.70-6.10) Hemoglobin 15.0 G/DL (14.2-18.0) Hematocrit 44.9 % (42.0-52.0) Mean Corpuscular Volume 86 FL (80-99) Mean Corpuscular Hemoglobin 28.8 PG (27.0-31.0) Mean Corpuscular Hemoglobin Concent 33.5 G/DL (32.0-36.0) Red Cell Distribution Width 12.0 % (11.6-14.8) Platelet Count 314 K/UL (150-450) Mean Platelet Volume 7.5 FL (6.5-10.1) Neutrophils (%) (Auto) % (45.0-75.0) Lymphocytes (%) (Auto) % (20.0-45.0) Monocytes (%) (Auto) % (1.0-10.0) Eosinophils (%) (Auto) % (0.0-3.0) Basophils (%) (Auto) % (0.0-2.0) Differential Total Cells Counted 100 Neutrophils % (Manual) 94 % (45-75) H Lymphocytes % (Manual) 5 % (20-45) L Monocytes % (Manual) 1 % (1-10) Eosinophils % (Manual) 0 % (0-3) Basophils % (Manual) 0 % (0-2) Band Neutrophils 0 % (0-8) Platelet Estimate Adequate Platelet Morphology Normal Red Blood Cell Morphology Normal Sodium Level 142 MMOL/L (136-145) Potassium Level 3.9 MMOL/L (3.5-5.1) Chloride Level 104 MMOL/L (98-107) Carbon Dioxide Level 26 MMOL/L (21-32) Anion Gap 12 mmol/L (5-15) Blood Urea Nitrogen 7 mg/dL (7-18) Creatinine 1.0 MG/DL (0.55-1.30) Estimate Glomerular Filtration Rate > 60 mL/min (>60) Glucose Level 142 MG/DL (74-106) H Calcium Level 9.8 MG/DL (8.5-10.1) Total Bilirubin 0.6 MG/DL (0.2-1.0) Aspartate Amino Transferase (AST) 37 U/L (15-37) Alanine Aminotransferase (ALT) 49 U/L (12-78) Alkaline Phosphatase 88 U/L (46-116) Total Protein 7.8 G/DL (6.4-8.2) Albumin 4.4 G/DL (3.4-5.0) Globulin 3.4 g/dL Albumin/Globulin Ratio 1.3 (1.0-2.7) Lipase 135 U/L (73-393) Reevaluation Time: 11:35 Last Vital Signs Date Time Temp Pulse Resp B/P (MAP) Pulse Ox O2 Delivery O2 Flow Rate FiO2 01/25/19 07:58 85 18 Room Air 01/25/19 07:58 98.2 129/83 (98) 99 Status: improved Reevaluation Impression Labs have returned largely within normal limits. No anemia, normal electrolyte , normal renal function. The patient's symptoms are now controlled. We will refill his omeprazole and discharged home with Zofran. He can use Pepcid and Maalox as well for treatment of acute gastritis. Advised to follow-up with his PMD or 1 of the clinics listed in his discharge paperwork. We discussed reasons to return to the emergency department. He understands and agrees to this treatment plan and was discharged home Disposition: HOME, SELF-CARE Condition: Improved Scripts Ondansetron Odt* (ZOFRAN ODT*) 4 Mg Tab.rapdis 4 MG BC EVERY 6 HOURS PRN for Nausea & Vomiting, #20 TAB 0 Refills Prov: Hussein Santos MD 01/25/19 Omeprazole (OMEPRAZOLE) 20 Mg Capsule. 20 MG ORAL DAILY for 30 Days, #30 CAP Prov: Hussein Santos MD 01/25/19 Hussein Santos MD Jan 25, 2019 08:59
[2019-01-25] MEDS ORDERED: Lidocaine 2% Visc 15ml soln ORAL ONE (09:00)
[2019-01-25] MEDS ORDERED: DiphenhydrAMINE 50mg/ml Inj IVP ONE (09:00)
[2019-01-25] MEDS ORDERED: Metoclopramide 10mg/2ml Inj IVP ONE (09:00)
[2019-01-25] MEDS ORDERED: Dicyclomine HCl 10mg/5ml oral soln ORAL ONE (09:00)
[2019-01-25] MEDS ORDERED: Mylanta II UD 30ml ORAL ONE (09:00)
[2019-01-25 09:38] LABS: HEMATOCRIT 44.9 % (42.0-52.0); MEAN CORPUSCULAR VOLUME 86 FL (80-99); PLATELET COUNT 314 K/UL (150-450); RED BLOOD COUNT 5.22 M/UL (4.70-6.10); WHITE BLOOD COUNT 12.5 K/UL (4.8-10.8)
[2019-01-25 09:41] LABS: ANION GAP 12 mmol/L (5-15); BLOOD UREA NITROGEN 7 mg/dL (7-18); CALCIUM 9.8 MG/DL (8.5-10.1); CARBON DIOXIDE 26 MMOL/L (21-32); CHLORIDE 104 MMOL/L (98-107); POTASSIUM 3.9 MMOL/L (3.5-5.1); SODIUM 142 MMOL/L (136-145)
[2019-01-25 09:45] LABS: ALANINE AMINOTRANSFERASE 49 U/L (12-78); ALBUMIN 4.4 G/DL (3.4-5.0); ALBUMIN/GLOBULIN RATIO 1.3 (1.0-2.7); ALKALINE PHOSPHATASE 88 U/L (46-116); ASPARTATE AMINO TRANSFERASE 37 U/L (15-37); BILIRUBIN,TOTAL 0.6 MG/DL (0.2-1.0)
--- NOTE | 2019-01-25 10:20 | NUR ---
ED Nurse Note: BABAR at bedside. pt reported to ERMRasheed he still has 10/10 abdominal pain but no more vomiting.
[2019-01-25] MEDS ORDERED: Morphine Sulfate 4mg/ml Inj (IV USE ONLY) IVP ONE (10:30)
--- NOTE | 2019-01-25 11:21 | NUR ---
ED Nurse Note: a friend went to work and left number. Azael [phone]. he will come and pick pt up when pt is being discharged.
[2019-01-25] MEDS ORDERED: OMEPRAZOLE20 M2 ORAL (11:35)
[2019-01-25] MEDS ORDERED: ONDANSETRON ODT4 MG BC (11:35)
--- NOTE | 2019-01-25 11:52 | NUR ---
ED Nurse Note: pt refused to be discharged. pt wants to stay one more hour and monitor his symptoms. pt refused to sign on dc paper at this moment. BABAR made aware.
--- NOTE | 2019-01-25 11:56 | NUR ---
ED Nurse Note: per ERMD there is no symptoms and indication to keep pt at ER at this moment. pt made aware and agreed with being discharged.
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
[2019-01-25 12:43] VITALS: BP 132/70
--- NOTE | 2019-01-25 12:43 | NUR ---
ER DISCHARGE NOTE: Patient is cleared to be discharged per ERMD, pt is aox4, on room air, with stable vital signs. pt was given dc and prescription instructions, pt was able to verbalize understanding, pt id band and iv site removed without complications. pt is able to ambulate with steady gait. pt took all belongings and left with his friend.
== END 2019-01-25 12:43 | disposition home or self-care (01) ==
LOC: EMR 08:58
DX: R10.9 Unspecified abdominal pain (principal); R11.10 Vomiting, unspecified; Z88.0 Allergy status to penicillin; F41.9 Anxiety disorder, unspecified
CPT/HCPCS: 36415; 80053; 83690; 85007; 85025; 96361; 96374; 96375; J1200; J2270; J2405; J2765; S0028; Z7502; 99284

== ENCOUNTER 2019-12-16 22:32 | Emergency (ER) | payer SELFPAY ==
[~2019-12-16 22:32] MED LIST changes: +OMEPRAZOLE20 M2 ORAL
--- NOTE | 2019-12-16 22:39 | NUR ---
ED Nurse Note: PT CALLED TO TRIAGE BUT REFUSED TO BE SEEN. PT IS SITTING ON THE REGISTRATION AGUILERA NOT COOPERATING OR COMPLYING WITH THE PELOTA MAKER AND YELLING IN TRIAGE. SECURITY CALLED TO SCENE. Addendum: 12/16/19 at 2257 by KDEARING ED Nurse Note: PT CALLED TO TRIAGE BUT REFUSED TO BE SEEN. PT IS SITTING ON THE REGISTRATION AGUILERA NOT COOPERATING OR COMPLYING WITH THE PELOTA MAKER AND YELLING IN TRIAGE. SECURITY CALLED TO SCENE. PT WAS ESCORTED OUTSIDE BY SECURITY. WHEN ESCORTED OUTSIDE BY SECURITY, PT AMBULATED.
[2019-12-17] MEDS ORDERED: NAPROXEN500 M2 ORAL (00:56)
--- NOTE | 2019-12-17 02:27 | Emergency Room Report ---
History of Present Illness General Chief Complaint: To Be Triaged Present Illness HPI Patient was not seen or examined by me on this visit. Patient declined to be seen initially. He did return shortly after this initial registration. See other encounter for the details of that encounter Allergies: Coded Allergies: AMOXICILLIN (Verified Allergy, Intermediate, fever, 06/26/17) [place] (Verified Allergy, Unknown, 05/24/18) Nursing Documentation-PMH Hx Cardiac Problems: No Hx Hypertension: No Hx Pacemaker: No Hx Asthma: No Hx COPD: No Hx Diabetes: No Hx Cancer: No Hx Gastrointestinal Problems: Yes - Gastritis, hital hernia Hx Dialysis: No Hx Neurological Problems: No Hx Cerebrovascular Accident: No Hx Seizures: No Medical Decision Making Disposition: LEFT W/OUT BEING SEEN Referrals: NOT CHOSEN IPA/,REFERRING (PCP) Cory Goins M.D. Dec 17, 2019 02:27
== END 2019-12-16 22:39 | disposition left against medical advice (07) ==
LOC: EMR 22:35
DX: Z53.21 Procedure and treatment not carried out due to patient leaving prior to being seen by health care provider (principal)

== ENCOUNTER 2019-12-16 23:26 | Emergency (ER) | payer OTHER ==
[~2019-12-16] VITALS: Ht 185.4 cm; Wt 74.8 kg
[2019-12-17] MEDS ORDERED: NAPROXEN500 M2 ORAL (00:56)
[2019-12-17 01:30] VITALS: BP 132/72
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
== END 2019-12-17 01:30 | disposition home or self-care (01) ==
LOC: EMR 12-17
DX: S82.891D Other fracture of right lower leg, subsequent encounter for closed fracture with routine healing (principal); X58.XXXD Exposure to other specified factors, subsequent encounter; Z88.1 Allergy status to other antibiotic agents; Z91.018 Allergy to other foods
CPT/HCPCS: 99282